=== PATIENT | female | born 1965 | race African-American/Black ===

== ENCOUNTER 2020-12-26 14:59 | Emergency (ER) | payer OTHER ==
[~2020-12-26] VITALS: Ht 160 cm; Wt 52.2 kg
[~2020-12-26 14:59] MED LIST: IBUPROFEN600 MG ORAL; TYLENOL EXTRA500 MG ORAL
[2020-12-26] MEDS ORDERED: MUPIROCIN22 GM TOPIC (15:19)
--- NOTE | 2020-12-26 15:24 | Emergency Room Report ---
History of Present Illness General Chief Complaint: Skin Rash/Abscess Source: Patient Present Illness HPI Patient is a 55-year-old female denies any significant past medical history who presents to the ER complaining of a skin growth to her left nipple. Patient states that she does not know when it started but felt like she pulled on it and is now hanging and she wants it taken off. Patient states that her grandmother has a history of breast cancer. She does have a [employer] that she follows up with. She denies any fever or chills or nipple discharge. Allergies: Coded Allergies: No Known Allergies (Unverified , 07/29/12) COVID-19 Screening Contact w/high risk pt: No Experienced COVID-19 symptoms?: No COVID-19 Testing performed PIG STICKER: No Patient History Reviewed Nursing Documentation: PMH: Agreed; PSxH: Agreed Nursing Documentation-PMH Past Medical History: No Stated History Review of Systems All Other Systems: negative except mentioned in HPI Physical Exam Vital Signs Date Time Temp Pulse Resp B/P (MAP) Pulse Ox O2 Delivery O2 Flow Rate FiO2 12/26/20 15:05 98.1 76 18 110/52 (71) 98 Room Air Sp02 EP Interpretation: reviewed, normal General Appearance: no apparent distress, alert, GCS 15, non-toxic Head: normocephalic, atraumatic Eyes: bilateral eye normal inspection, bilateral eye PERRL ENT: hearing grossly normal, normal pharynx, no angioedema, normal voice Neck: supple, no meningismus Respiratory: lungs clear, normal breath sounds, no accessory muscle use Cardiovascular #1: regular rate, rhythm Gastrointestinal: non tender, soft Rectal: deferred Genitourinary: no CVA tenderness Musculoskeletal: normal range of motion Neurologic: electrical continuity tester III-XII nml as tested, oriented x3 Psychiatric: no suicidal/homicidal ideation Skin: other - Left nipple either skin tag versus skin growth no erythema no tenderness to palpation Lymphatic: no adenopathy Medical Decision Making Diagnostic Impression: Primary Impression: Skin tag ER Course Patient requesting removal of new skin lesion but I explained to her that I would like her [employer] [employer] or primary care doctor or press technician remove it so they can send it for pathology and ensure that it is not cancerous also given the fact that her grandmother is a history of breast cancer. Patient demonstrated understanding. I have given her topical antibiotics to use. After discussing risks and benefits of further diagnostics, treatment plans, as well as indications for and risks of admission, the patient is agreeable to being discharged home. I have explained that their evaluation and treatment in the emergency department today is an important step towards them achieving better health but that their evaluation today is not intended to replace further evaluation and treatment by a physician in their local clinic. I have explained that while the current findings suggest no immediate life threatening emergency they will require further evaluation and treatment by a physician of their choice in their area. They understand that it will be necessary for them to review the final reports of their ED visit with their clinic physician. We have reviewed indications for return to the Emergency Department. I have explained that additional time may need to pass and/or additional testing as an outpatient may be necessary before a definitive diagnosis can be made. They tell me they are willing to follow up as instructed within the timeframe I recommend. They appear to understand what we discussed. Additionally they understand that if they are unable to be seen by an outpatient physician they are welcome, and in fact should, return to the Emergency Department for a repeat evaluation. The patient is stable at time of discharge. Last Vital Signs Date Time Temp Pulse Resp B/P (MAP) Pulse Ox O2 Delivery O2 Flow Rate FiO2 12/26/20 15:05 98.1 76 18 110/52 (71) 98 Room Air Disposition: HOME, SELF-CARE Condition: Stable Scripts Mupirocin* (MUPIROCIN*) 22 Gm Oint...g. 1 APPLIC TOPIC THREE TIMES A DAY for 10 Days, GM Prov: Elizabeth Mckeon M.D. 12/26/20 Referrals: [facility] Patient Instructions: Skin Tear Care, [id number] Additional Instructions: Please follow-up with your doctors that they can send the piece of skin for pathology and ensure that it is not cancerous. The patient was provided with discharge instructions, notified to follow-up with a primary care doctor and or specialist in the next 24-48 hours, and to return to the ED if they have worsening of their symptoms. Please note that this report is being documented using [employer] technology. This can lead to erroneous entry secondary to incorrect interpretation by the dictating instrument. Elizabeth Mckeon M.D. Dec 26, 2020 15:24
[2020-12-26 15:25] VITALS: BP 110/52
--- NOTE | 2020-12-26 15:27 | NUR ---
ED Nurse Note: pt has several skin tag like areas around her areolas and is worried that one got pulled and infected. left breast no noted redness or discharge. encouraged her to f/u with [facility] to look at the skin tags.
--- NOTE | 2020-12-26 15:28 | NUR ---
ER DISCHARGE NOTE: Patient is cleared to be discharged per ERMD, pt is aox4, on room air, with stable vital signs. pt was given dc and prescription instructions, pt was able to verbalize understanding pt is able to ambulate with steady gait. pt took all belongings.
== END 2020-12-26 15:28 | disposition home or self-care (01) ==
LOC: EMR 15:11
DX: L91.8 Other hypertrophic disorders of the skin (principal); Z80.3 Family history of malignant neoplasm of breast
CPT/HCPCS: 99282